=== PATIENT | female | born 1985 | race Caucasian/White ===

== ENCOUNTER 2017-12-12 07:04 | Inpatient (IN) | payer BC ==
[2017-12-12] MEDS: Misoprostol 25 MCG (1/4 of 100 MCG) Tab PO SCH ×3 (07:30→14:46)
[2017-12-12] MEDS ORDERED: Misoprostol 25 MCG (1/4 of 100 MCG) Tab ONE (07:34)
[2017-12-12] MEDS ORDERED: Nalbuphine 20 MG/1 ML Amp IVPUSH PRN (07:38)
[2017-12-12] MEDS ORDERED: Sodium Chloride 0.9% 10 ML Syringe FLUSH PRN (07:38)
[2017-12-12] MEDS ORDERED: Acetaminophen 325 MG Tab PO PRN ×2 (07:38→20:48)
[2017-12-12] MEDS ORDERED: Oxytocin/Lactated Ringers 10 UNIT/1,000 ML BAG IV SCH (07:45)
[2017-12-12] MEDS: Lactated Ringers 1,000 ML IV SCH ×4 (08:26→18:26)
[2017-12-12] MEDS: Clindamycin Phosphate 900 MG in Sodium Chloride 0.9% 100 ML IV SCH ×2 (08:26→16:08)
--- NOTE | 2017-12-12 08:39 | PCM.LDHP ---
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 She presents today to the clinic for induction with an estimated gestational age of 39 weeks and 5 days. GBS was positive in this patient and as a result of her penicillin allergy she was started on clindamycin. She denies any contractions, pain, loss of blood, or loss of fluid Pain Score: 0 Improves with: Reports: None Worsens with: Reports: None - Related Data Allergies/Adverse Reactions: Allergies Allergy/AdvReac Type Severity Reaction Status Date / Time Penicillins Allergy Hives Verified 12/17/15 11:54 Home Medications: Home Meds Vits #93/Iron Fum/FA [ Formula Tablet] 1 tab PO DAILY 12/12/17 [History] Past Medical History - Past Health History Medical/Surgical History: Denies Medical/Surgical History Psychiatric History: Reports: Depression - Infectious Disease History Infectious Disease History: Reports: Chicken Pox Social & Family History - Family History Other Cardiac Family History: Patient reports paternal grandfather had heart disease Respiratory: Reports: None GI: Reports: None : Reports: None Other Family History: Patient reports maternal aunt had kidney problems OBGYN: Reports: None Musculoskeletal: Reports: None Neurological: Reports: None Psychiatric: Reports: None Endocrine/Metabolic: Reports: None Hematologic: Reports: None Immunologic: Reports: None Dermatologic: Reports: None Oncologic: Reports: None - Tobacco Use Smoking Status *Q: Never Smoker Tobacco Use Within Last Twelve Months: No - Alcohol Use Days Per Week of Alcohol Use: 0 - Recreational Drug Use Recreational Drug Use: No Drug Use in Last 12 Months: No H&P Review of Systems - Review of Systems: Review Of Systems: See Below General: Reports: Fatigue, Weight Gain HEENT: Reports: No Symptoms Pulmonary: Reports: No Symptoms Cardiovascular: Reports: No Symptoms Gastrointestinal: Reports: Other (Indigestion made worse by laying down) Genitourinary: Reports: No Symptoms Musculoskeletal: Reports: No Symptoms Skin: Reports: No Symptoms Psychiatric: Reports: No Symptoms Neurological: Reports: No Symptoms L&D Exam - Exam Exam: See Below - Vital Signs Vital Signs: Last Vital Signs Temp 98.9 F 12/12/17 07:38 Pulse 93 12/12/17 08:01 Resp 18 12/12/17 07:38 BP 119/78 12/12/17 08:01 Pulse Ox Weight: 276 lb - OB Specific Fundal Height In cm: 38 Movement: Active Heart Tones: Present - Almaguer Score Almaguer Score Cervix Position: Posterior Almaguer Score Consistency: Soft Almaguer Score Effacement: 31-50% Almaguer Score Dilation: 1-2 cm Almaguer Score Infant's Station: -3 Almaguer Score Total: 4 - Exam General: Alert, Oriented, Cooperative HEENT: Conjunctiva Clear, Mucosa Moist & Currie, Pupils Equal, Pupils Reactive Neck: Supple, Trachea Midline, +2 Carotid Pulse wo Bruit, Full Range of Motion Lungs: Clear to Auscultation, Normal Respiratory Effort Cardiovascular: Regular Rate, Regular Rhythm GI/Abdominal Exam: Normal Bowel Sounds, Soft, Non-Tender, No Organomegaly Genitourinary: Normal external exam Extremities: Normal Inspection, Normal Range of Motion, Pedal Edema Skin: Warm, Dry, Intact Neurological: Reflexes Equal Bilateral DTR: 2+: Bicep (L), Bicep (R), Patella (L), Patella (R) Psychiatric: Alert, Normal Affect, Normal Mood Psychiatric Exam Comments: Patient reports a previous history of depression but currently denies any symptoms - Patient Data Lab Results Last 24 hrs: Laboratory Results - last 24 hr 12/12/17 Range/Units 08:00 WBC 11.96 H (3.98-10.04) K/mm3 RBC 3.92 L (3.98-5.22) M/mm3 Hgb 12.4 (11.2-15.7) gm/L Hct 37.4 (34.1-44.9) % MCV 95.4 H (79.4-94.8) fl MCH 31.6 (25.6-32.2) pg MCHC 33.2 (32.2-35.5) g/dl RDW Std Deviation 42.2 (36.4-46.3) fL Plt Count 187 (182-369) K/mm3 MPV 12.0 (9.4-12.3) fl Neut % (Auto) 75.7 H (34.0-71.1) % Lymph % (Auto) 15.2 L (19.3-51.7) % Frederick % (Auto) 8.1 (4.7-12.5) % Eos % (Auto) 0.5 L (0.7-5.8) Baso % (Auto) 0.2 (0.1-1.2) % Neut # (Auto) 9.06 H (1.56-6.13) K/mm3 Lymph # (Auto) 1.82 (1.18-3.74) K/mm3 Frederick # (Auto) 0.97 H (0.24-0.36) K/mm3 Eos # (Auto) 0.06 (0.04-0.36) K/mm3 Baso # (Auto) 0.02 (0.01-0.08) K/mm3 Result Diagrams: 12/12/17 08:00 - Problem List (1) 39 weeks gestation of SNOMED Code(s): 11168357 ICD Code: Z3A.39 - 39 WEEKS GESTATION OF Status: Acute Current Visit: Yes (2) GBS carrier SNOMED Code(s): 9430511938883 ICD Code: Z22.330 - CARRIER OF GROUP B STREPTOCOCCUS Status: Acute Current Visit: Yes Problem List Initiated/Reviewed/Updated: No Orders Last 24hrs: Active Orders 24 hr Category Date Time Status Communication Order [RC] ASDIRECTED Care 12/12/17 07:38 Active Communication Order [RC] ASDIRECTED Care 12/12/17 07:38 Active Communication Order [RC] ASDIRECTED Care 12/12/17 07:38 Active Monitoring [RC] INTERMITTENT Care 12/12/17 07:38 Active Notify Provider [RC] ASDIRECTED Care 12/12/17 07:38 Active Peripheral IV Care [RC] . DIRECTED Care 12/12/17 07:38 Active Vaginal Exam [RC] ASDIRECTED Care 12/12/17 07:38 Active Vital Signs [RC] ASDIRECTED Care 12/12/17 07:38 Active Regular Diet [DIET] Diet 12/12/17 Breakfast Active TYPE AND SCREEN [BBK] Stat Lab 12/12/17 08:00 Received Acetaminophen [Tylenol] Med 12/12/17 07:38 Active 650 mg PO Q4H PRN Clindamycin Phosphate [Cleocin] 900 mg Med 12/12/17 08:00 Active Sodium Chloride 0.9% [Normal Saline] 100 ml IV Q8H Lactated Ringers [Ringers, Lactated] 1,000 ml Med 12/12/17 07:45 Active IV ASDIRECTED Misoprostol [Cytotec] Med 12/12/17 07:45 Active 25 mcg PO Q3H Nalbuphine [Nubain] Med 12/12/17 07:38 Active 10 mg IVPUSH Q2H PRN Oxytocin/Lactated Ringers [Pitocin in LR 10 Units/1,000 Med 12/12/17 07:45 Active ML] 10 unit in 1,000 ml IV TITRATE Sodium Chloride 0.9% [Saline Flush] Med 12/12/17 07:38 Active 10 ml FLUSH ASDIRECTED PRN Peripheral IV Insertion Adult [OM.PC] Routine Oth 12/12/17 07:38 Ordered Medication Orders Acetaminophen (Tylenol) 650 mg PO Q4H PRN PRN Reason: Fever greater than 100.4 Lactated Ringer's (Ringers, Lactated) 1,000 mls @ 40 mls/hr IV ASDIRECTED SARAH Last Admin: 12/12/17 08:26 Dose: 40 mls/hr Oxytocin/Lactated Ringer's (Pitocin In Lr 10 Units/1,000 Ml) 10 unit in 1,000 mls @ 12 mls/hr IV TITRATE SARAH; 2 MUNITS/MIN PRN Reason: Protocol Clindamycin Phosphate 900 mg/ (Sodium Chloride) 106 mls @ 212 mls/hr IV Q8H SARAH Last Admin: 12/12/17 08:26 Dose: 212 mls/hr Misoprostol (Cytotec) 25 mcg PO Q3H SARAH Stop: 12/12/17 13:46 Last Admin: 12/12/17 07:30 Dose: 25 mcg Nalbuphine HCl (Nubain) 10 mg IVPUSH Q2H PRN PRN Reason: Pain Sodium Chloride (Saline Flush) 10 ml FLUSH ASDIRECTED PRN PRN Reason: Keep Vein Open Assessment/Plan Comment:: Plan induction, labor and delivery <Good Vidal - Last Filed: 12/12/17 10:17> L&D History of Present Illness - General Admit Problem/Dx: Admission Diagnosis/Problem Admission Diagnosis/Problem L&D Exam - Vital Signs Vital Signs: Last Vital Signs Temp 98.9 F 12/12/17 07:38 Pulse 89 12/12/17 09:01 Resp 18 12/12/17 07:38 BP 119/78 12/12/17 08:01 Pulse Ox - Patient Data Lab Results Last 24 hrs: Laboratory Results - last 24 hr 12/12/17 12/12/17 Range/Units 08:00 08:00 WBC 11.96 H (3.98-10.04) K/mm3 RBC 3.92 L (3.98-5.22) M/mm3 Hgb 12.4 (11.2-15.7) gm/L Hct 37.4 (34.1-44.9) % MCV 95.4 H (79.4-94.8) fl MCH 31.6 (25.6-32.2) pg MCHC 33.2 (32.2-35.5) g/dl RDW Std Deviation 42.2 (36.4-46.3) fL Plt Count 187 (182-369) K/mm3 MPV 12.0 (9.4-12.3) fl Neut % (Auto) 75.7 H (34.0-71.1) % Lymph % (Auto) 15.2 L (19.3-51.7) % Frederick % (Auto) 8.1 (4.7-12.5) % Eos % (Auto) 0.5 L (0.7-5.8) Baso % (Auto) 0.2 (0.1-1.2) % Neut # (Auto) 9.06 H (1.56-6.13) K/mm3 Lymph # (Auto) 1.82 (1.18-3.74) K/mm3 Frederick # (Auto) 0.97 H (0.24-0.36) K/mm3 Eos # (Auto) 0.06 (0.04-0.36) K/mm3 Baso # (Auto) 0.02 (0.01-0.08) K/mm3 Blood Type O POSITIVE Gel Antibody Screen Negative Result Diagrams: 12/12/17 08:00 - Problem List (1) 39 weeks gestation of SNOMED Code(s): 30868585 ICD Code: Z3A.39 - 39 WEEKS GESTATION OF Status: Acute Current Visit: Yes (2) GBS carrier SNOMED Code(s): 2413778102067 ICD Code: Z22.330 - CARRIER OF GROUP B STREPTOCOCCUS Status: Acute Current Visit: Yes Problem List Initiated/Reviewed/Updated: No Orders Last 24hrs: Active Orders 24 hr Category Date Time Status Communication Order [RC] ASDIRECTED Care 12/12/17 07:38 Active Communication Order [RC] ASDIRECTED Care 12/12/17 07:38 Active Communication Order [RC] ASDIRECTED Care 12/12/17 07:38 Active Monitoring [RC] INTERMITTENT Care 12/12/17 07:38 Active Notify Provider [RC] ASDIRECTED Care 12/12/17 07:38 Active Peripheral IV Care [RC] . DIRECTED Care 12/12/17 07:38 Active Vaginal Exam [RC] ASDIRECTED Care 12/12/17 07:38 Active Vital Signs [RC] ASDIRECTED Care 12/12/17 07:38 Active Regular Diet [DIET] Diet 12/12/17 Breakfast Active PATIENT RETYPE [BBK] Stat Lab 12/12/17 08:00 Results TYPE AND SCREEN [BBK] Stat Lab 12/12/17 08:00 Results Acetaminophen [Tylenol] Med 12/12/17 07:38 Active 650 mg PO Q4H PRN Clindamycin Phosphate [Cleocin] 900 mg Med 12/12/17 08:00 Active Sodium Chloride 0.9% [Normal Saline] 100 ml IV Q8H Lactated Ringers [Ringers, Lactated] 1,000 ml Med 12/12/17 07:45 Active IV ASDIRECTED Misoprostol [Cytotec] Med 12/12/17 07:45 Active 25 mcg PO Q3H Nalbuphine [Nubain] Med 12/12/17 07:38 Active 10 mg IVPUSH Q2H PRN Oxytocin/Lactated Ringers [Pitocin in LR 10 Units/1,000 Med 12/12/17 07:45 Active ML] 10 unit in 1,000 ml IV TITRATE Sodium Chloride 0.9% [Saline Flush] Med 12/12/17 07:38 Active 10 ml FLUSH ASDIRECTED PRN Peripheral IV Insertion Adult [OM.PC] Routine Oth 12/12/17 07:38 Ordered Medication Orders Acetaminophen (Tylenol) 650 mg PO Q4H PRN PRN Reason: Fever greater than 100.4 Lactated Ringer's (Ringers, Lactated) 1,000 mls @ 40 mls/hr IV ASDIRECTED SARAH Last Admin: 12/12/17 08:26 Dose: 40 mls/hr Oxytocin/Lactated Ringer's (Pitocin In Lr 10 Units/1,000 Ml) 10 unit in 1,000 mls @ 12 mls/hr IV TITRATE SARAH; 2 MUNITS/MIN PRN Reason: Protocol Clindamycin Phosphate 900 mg/ (Sodium Chloride) 106 mls @ 212 mls/hr IV Q8H SARAH Last Admin: 12/12/17 08:26 Dose: 212 mls/hr Misoprostol (Cytotec) 25 mcg PO Q3H SARAH Stop: 12/12/17 13:46 Last Admin: 12/12/17 07:30 Dose: 25 mcg Nalbuphine HCl (Nubain) 10 mg IVPUSH Q2H PRN PRN Reason: Pain Sodium Chloride (Saline Flush) 10 ml FLUSH ASDIRECTED PRN PRN Reason: Keep Vein Open Assessment/Plan Comment:: Patient seen examined and discussed with student.
--- NOTE | 2017-12-12 11:47 | PCM.PREANE ---
Preanesthetic Assessment - Procedure Proposed Procedure: PATI - Anesthesia/Transfusion/Family Hx Anesthesia History: Prior Anesthesia Without Reaction Family History of Anesthesia Reaction: No Transfusion History: No Prior Transfusion(s) - Review of Systems General: No Symptoms Pulmonary: No Symptoms Cardiovascular: No Symptoms Gastrointestinal: Other (GERD occasionally depending on diet ) Neurological: No Symptoms Other: Reports: None - Physical Assessment NPO Status Date: 12/12/17 NPO Status Time: 11:00 Pulse: 89 Respiratory Rate: 18 Blood Pressure: 119/78 Vital Signs: Last Vital Signs Temp 37.2 C 12/12/17 07:38 Pulse 89 12/12/17 09:01 Resp 18 12/12/17 07:38 BP 119/78 12/12/17 08:01 Pulse Ox Height: 1.8 m Weight: 125.191 kg ASA Class: 2 Mental Status: Alert & Oriented x3 Airway Class: Mallampati = 1 Dentition: Reports: Normal Dentition Thyro-Mental Finger Breadths: 3 Mouth Opening Finger Breadths: 3 ROM/Head Extension: Full Lungs: Clear to Auscultation, Normal Respiratory Effort Cardiovascular: Regular Rate, Regular Rhythm - Lab Values: Laboratory Last Values WBC 11.96 K/mm3 (3.98-10.04) H 12/12/17 08:00 RBC 3.92 M/mm3 (3.98-5.22) L 12/12/17 08:00 Hgb 12.4 gm/L (11.2-15.7) 12/12/17 08:00 Hct 37.4 % (34.1-44.9) 12/12/17 08:00 MCV 95.4 fl (79.4-94.8) H 12/12/17 08:00 MCH 31.6 pg (25.6-32.2) 12/12/17 08:00 MCHC 33.2 g/dl (32.2-35.5) 12/12/17 08:00 RDW Std Deviation 42.2 fL (36.4-46.3) 12/12/17 08:00 Plt Count 187 K/mm3 (182-369) 12/12/17 08:00 MPV 12.0 fl (9.4-12.3) 12/12/17 08:00 Neut % (Auto) 75.7 % (34.0-71.1) H 12/12/17 08:00 Lymph % (Auto) 15.2 % (19.3-51.7) L 12/12/17 08:00 Lyman % (Auto) 8.1 % (4.7-12.5) 12/12/17 08:00 Eos % (Auto) 0.5 (0.7-5.8) L 12/12/17 08:00 Baso % (Auto) 0.2 % (0.1-1.2) 12/12/17 08:00 Neut # (Auto) 9.06 K/mm3 (1.56-6.13) H 12/12/17 08:00 Lymph # (Auto) 1.82 K/mm3 (1.18-3.74) 12/12/17 08:00 Lyman # (Auto) 0.97 K/mm3 (0.24-0.36) H 12/12/17 08:00 Eos # (Auto) 0.06 K/mm3 (0.04-0.36) 12/12/17 08:00 Baso # (Auto) 0.02 K/mm3 (0.01-0.08) 12/12/17 08:00 Blood Type O POSITIVE 12/12/17 08:00 Gel Antibody Screen Negative 12/12/17 08:00 - Allergies Allergies/Adverse Reactions: Allergies Allergy/AdvReac Type Severity Reaction Status Date / Time Penicillins Allergy Hives Verified 12/17/15 11:54 - Blood Blood Available: No Product(s) Available: None - Anesthesia Plan Pre-Op Medication Ordered: None - Acknowledgements Anesthesia Type Planned: Epidural Pt an Appropriate Candidate for the Planned Anesthesia: Yes Alternatives and Risks of Anesthesia Discussed w Pt/Guardian: Yes Pt/Guardian Understands and Agrees with Anesthesia Plan: Yes PreAnesthesia Questionnaire - Past Health History Medical/Surgical History: Denies Medical/Surgical History [employer] History: Reports: Psychiatric History: Reports: Depression - Infectious Disease History Infectious Disease History: Reports: Chicken Pox - SUBSTANCE USE Smoking Status *Q: Never Smoker Tobacco Use Within Last Twelve Months: No Second Hand Smoke Exposure: No Days Per Week of Alcohol Use: 0 Recreational Drug Use History: No - HOME MEDS Home Medications: Home Meds Vits #93/Iron Fum/FA [ Formula Tablet] 1 tab PO DAILY 12/12/17 [History] - CURRENT (IN HOUSE) MEDS Current Meds: Current Medications Acetaminophen (Tylenol) 650 mg PO Q4H PRN PRN Reason: Fever greater than 100.4 Lactated Ringer's (Ringers, Lactated) 1,000 mls @ 40 mls/hr IV ASDIRECTED SARAH Last Admin: 12/12/17 08:26 Dose: 40 mls/hr Oxytocin/Lactated Ringer's (Pitocin In Lr 10 Units/1,000 Ml) 10 unit in 1,000 mls @ 12 mls/hr IV TITRATE SARAH; 2 MUNITS/MIN PRN Reason: Protocol Clindamycin Phosphate 900 mg/ (Sodium Chloride) 106 mls @ 212 mls/hr IV Q8H SARAH Last Admin: 12/12/17 08:26 Dose: 212 mls/hr Misoprostol (Cytotec) 25 mcg PO Q3H SARAH Stop: 12/12/17 13:46 Last Admin: 12/12/17 11:30 Dose: 25 mcg Nalbuphine HCl (Nubain) 10 mg IVPUSH Q2H PRN PRN Reason: Pain Sodium Chloride (Saline Flush) 10 ml FLUSH ASDIRECTED PRN PRN Reason: Keep Vein Open Discontinued Medications Misoprostol (Cytotec) Confirm Administered Dose 25 mcg .ROUTE .STK-MED ONE Stop: 12/12/17 07:35 Last Admin: 12/12/17 08:29 Dose: Not Given
--- NOTE | 2017-12-12 12:34 | PCM.SN ---
- Free Text/Narrative Note: Amniotomy 1231 clear fluid. FHR atable cat I before and after amniotomy. Cervix 2, 60, soft, posterior. vertex-1.
[2017-12-12] MEDS ORDERED: ePHEDrine 50 MG/ML SDV IVPUSH PRN (12:58)
[2017-12-12] MEDS ORDERED: fentaNYL 100 MCG/2 ML SDV EPIDUR PRN (12:58)
[2017-12-12] MEDS ORDERED: Ondansetron 4 MG/2 ML SDV IVPUSH PRN (12:58)
[2017-12-12] MEDS ORDERED: Bupivacaine/fentaNYL/NS 100 ML Bag EPIDUR SCH (13:00)
[2017-12-12] MEDS ORDERED: fentaNYL 100 MCG/2 ML SDV ONE (13:06)
[2017-12-12] MEDS: diphenhydrAMINE 50 MG/ML SDV IVPUSH PRN (15:29)
--- NOTE | 2017-12-12 16:30 | PCM.SN ---
- Free Text/Narrative Note: Cervix /soft/posterior to midposition, vertex-1, Pitocin augmentation in progress.
--- NOTE | 2017-12-12 20:37 | PCM.DEL ---
L & D Note - General Info Date of Service: 12/12/17 Mother's Due Date: 12/19/17 - Delivery Note Labor: Augmented by ARM, Augmented by Oxytocin Cervical Ripening Method: Misoprostil (25 g 23 hours apart intravaginal) Delivery Outcome: Livebirth (Female liveborn Monday12/12/17 at 2006 hours STCAEY nuchal cord 2 Apgars 8/9 weight 4050 g/8 pounds 14.9 ounces) Delivery Method: Spontaneous Vaginal Delivery-Single Delivery Mode: Spontaneous Presentation: Right Occiput Anterior (STACEY) Nuchal Cord: Present (2 reduced over the head.) Prep: Povidone-Iodine (Betadine Anesthesia Type: Epidural Episiotomy Type: None Laceration: None Placenta: Intact, Manual Removal (Adherent placenta manual removal required examined all cotyledons present. Intra-uterine exam after delivery of the placenta revealed no additional membranes are remnants of placenta.) Cord: 3 Vessels (Via cord cord blood collected as well as all of the umbilical cord. Made it approximately 200-250 mL of blood in the collection bag) Estimated Blood Loss: 500 Resuscitation Needed: No : Suctioned, Bulb Syringe, Stimulated, Warmed, Erhard Used, Warmer Used Provider: Good Vidal Score 1 min: 8 Score 5 min: 9 - Patient Data Vitals - Most Recent: Last Vital Signs Temp 98.9 F 12/12/17 07:38 Pulse 89 12/12/17 11:58 Resp 18 12/12/17 11:58 BP 119/78 12/12/17 11:58 Pulse Ox Weight - Most Recent: 276 lb I&O - Last 24 Hours: Intake & Output 12/12/17 12/12/17 12/12/17 06:59 14:59 22:59 Intake Total 3200 Balance 3200 Lab Results Last 24 Hours: Laboratory Results - last 24 hr 12/12/17 12/12/17 Range/Units 08:00 08:00 WBC 11.96 H (3.98-10.04) K/mm3 RBC 3.92 L (3.98-5.22) M/mm3 Hgb 12.4 (11.2-15.7) gm/L Hct 37.4 (34.1-44.9) % MCV 95.4 H (79.4-94.8) fl MCH 31.6 (25.6-32.2) pg MCHC 33.2 (32.2-35.5) g/dl RDW Std Deviation 42.2 (36.4-46.3) fL Plt Count 187 (182-369) K/mm3 MPV 12.0 (9.4-12.3) fl Neut % (Auto) 75.7 H (34.0-71.1) % Lymph % (Auto) 15.2 L (19.3-51.7) % [place] % (Auto) 8.1 (4.7-12.5) % Eos % (Auto) 0.5 L (0.7-5.8) Baso % (Auto) 0.2 (0.1-1.2) % Neut # (Auto) 9.06 H (1.56-6.13) K/mm3 Lymph # (Auto) 1.82 (1.18-3.74) K/mm3 [place] # (Auto) 0.97 H (0.24-0.36) K/mm3 Eos # (Auto) 0.06 (0.04-0.36) K/mm3 Baso # (Auto) 0.02 (0.01-0.08) K/mm3 Blood Type O POSITIVE Gel Antibody Screen Negative Med Orders - Current: Current Medications Acetaminophen (Tylenol) 650 mg PO Q4H PRN PRN Reason: Fever greater than 100.4 Diphenhydramine HCl (Benadryl) 25 mg IVPUSH Q6H PRN PRN Reason: Pruritis Last Admin: 12/12/17 15:29 Dose: 25 mg Ephedrine Sulfate (Ephedrine Sulfate) 5 mg IVPUSH ASDIRECTED PRN PRN Reason: Hypotension Fentanyl (Sublimaze) 100 mcg EPIDUR Q3H PRN PRN Reason: Pain Last Admin: 12/12/17 13:33 Dose: 100 mcg Fentanyl/Bupivacaine HCl (Fentanyl/Bupivacaine/Ns 2 Mcg-0.125% 100 Ml) 100 ml EPIDUR ASDIRECTED [facility] Last Admin: 12/12/17 13:33 Dose: 100 ml Lactated Ringer's (Ringers, Lactated) 1,000 mls @ 40 mls/hr IV ASDIRECTED [facility] Last Admin: 12/12/17 18:26 Dose: 500 mls/hr Oxytocin/Lactated Ringer's (Pitocin In Lr 10 Units/1,000 Ml) 10 unit in 1,000 mls @ 12 mls/hr IV TITRATE SARAH; 2 MUNITS/MIN PRN Reason: Protocol Last Titration: 12/12/17 18:24 Dose: 12 munits/min, 72 mls/hr Clindamycin Phosphate 900 mg/ (Sodium Chloride) 106 mls @ 212 mls/hr IV Q8H [facility] Last Admin: 12/12/17 16:08 Dose: 212 mls/hr Nalbuphine HCl (Nubain) 10 mg IVPUSH Q2H PRN PRN Reason: Pain Ondansetron HCl (Zofran) 4 mg IVPUSH ONETIME PRN PRN Reason: Nausea/Vomiting Sodium Chloride (Saline Flush) 10 ml FLUSH ASDIRECTED PRN PRN Reason: Keep Vein Open Discontinued Medications Fentanyl (Sublimaze) Confirm Administered Dose 100 mcg .ROUTE .STK-MED ONE Stop: 12/12/17 13:07 Last Admin: 12/12/17 14:46 Dose: Not Given Misoprostol (Cytotec) Confirm Administered Dose 25 mcg .ROUTE .STK-MED ONE Stop: 12/12/17 07:35 Last Admin: 12/12/17 08:29 Dose: Not Given Misoprostol (Cytotec) 25 mcg PO Q3H [facility] Stop: 12/12/17 13:46 Last Admin: 12/12/17 14:46 Dose: Not Given - Problem List & Annotations (1) 39 weeks gestation of SNOMED Code(s): 04016470 Code(s): Z3A.39 - 39 WEEKS GESTATION OF Status: Acute Current Visit: Yes (2) GBS carrier SNOMED Code(s): 2076679880975 Code(s): Z22.330 - CARRIER OF GROUP B STREPTOCOCCUS Status: Acute Current Visit: Yes (3) Adherent placenta SNOMED Code(s): 18809429 Code(s): O73.0 - RETAINED PLACENTA WITHOUT HEMORRHAGE Status: Acute Current Visit: Yes (4) Nuchal cord without compression, delivered, current hospitalization SNOMED Code(s): 37233371 Code(s): O69.81X0 - LABOR AND DEL COMP BY CORD AROUND NECK, W/O COMPRSN, UNSP Status: Acute Current Visit: Yes - Problem List Review Problem List Initiated/Reviewed/Updated: No - My Orders Last 24 Hours: My Active Orders 12/12/17 07:38 Communication Order [RC] ASDIRECTED Communication Order [RC] ASDIRECTED Communication Order [RC] ASDIRECTED Monitoring [RC] INTERMITTENT Notify Provider [RC] ASDIRECTED Peripheral IV Care [RC] . DIRECTED Vaginal Exam [RC] ASDIRECTED Vital Signs [RC] ASDIRECTED Acetaminophen [Tylenol] 650 mg PO Q4H PRN Nalbuphine [Nubain] 10 mg IVPUSH Q2H PRN Sodium Chloride 0.9% [Saline Flush] 10 ml FLUSH ASDIRECTED PRN Peripheral IV Insertion Adult [OM.PC] Routine 12/12/17 07:45 Lactated Ringers [Ringers, Lactated] 1,000 ml IV ASDIRECTED Oxytocin/Lactated Ringers [Pitocin in LR 10 Units/1,000 ML] 10 unit in 1,000 ml IV TITRATE 12/12/17 08:00 Clindamycin Phosphate [Cleocin] 900 mg Sodium Chloride 0.9% [Normal Saline] 100 ml IV Q8H 12/12/17 Breakfast Regular Diet [DIET] - Plan Plan:: Patient seen examined and discussed with student.
[2017-12-12] MEDS ORDERED: Witch Hazel Medicated Pads 100/Jar TOP PRN (20:48)
[2017-12-12] MEDS ORDERED: Lanolin 100% Cream 7 GM Tube TOP PRN (20:48)
[2017-12-12] MEDS ORDERED: Misoprostol 200 MCG Tab PO PRN (20:48)
[2017-12-12] MEDS ORDERED: Benzocaine/Menthol 20%-0.5% Spray 56 GM Canister TOP PRN (20:48)
[2017-12-12] MEDS ORDERED: Docusate Sodium 100 MG Cap PO PRN (20:48)
[2017-12-12] MEDS ORDERED: Bupivacaine 0.25% 10 ML SDV ONE (22:22)
[2017-12-13 02:49] VITALS: BP 118/60
[2017-12-13] MEDS: diphenhydrAMINE 50 MG/ML SDV IVPUSH PRN (03:52)
[2017-12-13] MEDS: Ibuprofen 600 MG Tab PO PRN ×2 (05:28→09:22)
--- NOTE | 2017-12-13 08:24 | PCM.DCSUM1 ---
Discharge Summary - Hospital Course Free Text/Narrative:: [facility] LIVE L/D Delivery Note Patient Name: HARRIET MAHONEY Date of : 85 Patient Status: Inpatient Attending Provider: Good Vidal Date: 12/12/17 20:31 Initialization Date: 12/12/17 20:31 Addendum entered and electronically signed by Good Vidal MD 12/12/17 20 :53: YASMANY 12/17/2017 not 12/19/2017 EGA 39w2d Original Note: L & D Note - General Info Date of Service: 12/12/17 Mother's Due Date: 12/19/17 - Delivery Note Labor: Augmented by ARM, Augmented by Oxytocin Cervical Ripening Method: Misoprostil (25 g 23 hours apart intravaginal) Delivery Outcome: Livebirth (Female liveborn Monday12/12/17 at 2006 hours STACEY nuchal cord 2 Apgars 8/9 weight 4050 g/8 pounds 14.9 ounces) Delivery Method: Spontaneous Vaginal Delivery-Single Infant Delivery Mode: Spontaneous Presentation: Right Occiput Anterior (STACEY) Nuchal Cord: Present (2 reduced over the head.) Prep: Povidone-Iodine (Betadine Anesthesia Type: Epidural Episiotomy Type: None Laceration: None Placenta: Intact, Manual Removal (Adherent placenta manual removal required examined all cotyledons present. Intra-uterine exam after delivery of the placenta revealed no additional membranes are remnants of placenta.) Cord: 3 Vessels (Via cord cord blood collected as well as all of the umbilical cord. Made it approximately 200-250 mL of blood in the collection bag) Estimated Blood Loss: 500 Resuscitation Needed: No : Suctioned, Bulb Syringe, Stimulated, Warmed, [place] Used, Warmer Used Provider: Good Vidal Score 1 min: 8 Score 5 min: 9 - Patient Data Vitals - Most Recent: Last Vital Signs Temp 98.9 F 12/12/17 07:38 Pulse 89 12/12/17 11:58 Resp 18 12/12/17 11:58 BP 119/78 12/12/17 11:58 Pulse Ox Weight - Most Recent: 276 lb I&O - Last 24 Hours: Intake & Output 12/12/17 12/12/17 12/12/17 06:59 14:59 22:59 Intake Total 3200 Balance 3200 Lab Results Last 24 Hours: Laboratory Results - last 24 hr 12/12/17 12/12/17 Range/Units 08:00 08:00 WBC 11.96 H (3.98-10.04) K/mm3 RBC 3.92 L (3.98-5.22) M/mm3 Hgb 12.4 (11.2-15.7) gm/L Hct 37.4 (34.1-44.9) % MCV 95.4 H (79.4-94.8) fl MCH 31.6 (25.6-32.2) pg MCHC 33.2 (32.2-35.5) g/dl RDW Std Deviation 42.2 (36.4-46.3) fL Plt Count 187 (182-369) K/mm3 MPV 12.0 (9.4-12.3) fl Neut % (Auto) 75.7 H (34.0-71.1) % Lymph % (Auto) 15.2 L (19.3-51.7) % [place] % (Auto) 8.1 (4.7-12.5) % Eos % (Auto) 0.5 L (0.7-5.8) Baso % (Auto) 0.2 (0.1-1.2) % Neut # (Auto) 9.06 H (1.56-6.13) K/mm3 Lymph # (Auto) 1.82 (1.18-3.74) K/mm3 [place] # (Auto) 0.97 H (0.24-0.36) K/mm3 Eos # (Auto) 0.06 (0.04-0.36) K/mm3 Baso # (Auto) 0.02 (0.01-0.08) K/mm3 Blood Type O POSITIVE Gel Antibody Screen Negative Med Orders - Current: Current Medications Acetaminophen (Tylenol) 650 mg PO Q4H PRN PRN Reason: Fever greater than 100.4 Diphenhydramine HCl (Benadryl) 25 mg IVPUSH Q6H PRN PRN Reason: Pruritis Last Admin: 12/12/17 15:29 Dose: 25 mg Ephedrine Sulfate (Ephedrine Sulfate) 5 mg IVPUSH ASDIRECTED PRN PRN Reason: Hypotension Fentanyl (Sublimaze) 100 mcg EPIDUR Q3H PRN PRN Reason: Pain Last Admin: 12/12/17 13:33 Dose: 100 mcg Fentanyl/Bupivacaine HCl (Fentanyl/Bupivacaine/Ns 2 Mcg-0.125% 100 Ml) 100 ml EPIDUR ASDIRECTED [facility] Last Admin: 12/12/17 13:33 Dose: 100 ml Lactated Ringer's (Ringers, Lactated) 1,000 mls @ 40 mls/hr IV ASDIRECTED [facility] Last Admin: 12/12/17 18:26 Dose: 500 mls/hr Oxytocin/Lactated Ringer's (Pitocin In Lr 10 Units/1,000 Ml) 10 unit in 1,000 mls @ 12 mls/hr IV TITRATE SARAH; 2 MUNITS/MIN PRN Reason: Protocol Last Titration: 12/12/17 18:24 Dose: 12 munits/min, 72 mls/hr Clindamycin Phosphate 900 mg/ (Sodium Chloride) 106 mls @ 212 mls/hr IV Q8H [facility] Last Admin: 12/12/17 16:08 Dose: 212 mls/hr Nalbuphine HCl (Nubain) 10 mg IVPUSH Q2H PRN PRN Reason: Pain Ondansetron HCl (Zofran) 4 mg IVPUSH ONETIME PRN PRN Reason: Nausea/Vomiting Sodium Chloride (Saline Flush) 10 ml FLUSH ASDIRECTED PRN PRN Reason: Keep Vein Open Discontinued Medications Fentanyl (Sublimaze) Confirm Administered Dose 100 mcg .ROUTE .STK-MED ONE Stop: 12/12/17 13:07 Last Admin: 12/12/17 14:46 Dose: Not Given Misoprostol (Cytotec) Confirm Administered Dose 25 mcg .ROUTE .STK-MED ONE Stop: 12/12/17 07:35 Last Admin: 12/12/17 08:29 Dose: Not Given Misoprostol (Cytotec) 25 mcg PO Q3H [facility] Stop: 12/12/17 13:46 Last Admin: 12/12/17 14:46 Dose: Not Given - Problem List & Annotations (1) 39 weeks gestation of SNOMED Code(s): 70444791 Code(s): Z3A.39 - 39 WEEKS GESTATION OF Status: Acute Current Visit: Yes (2) GBS carrier SNOMED Code(s): 3015746938574 Code(s): Z22.330 - CARRIER OF GROUP B STREPTOCOCCUS Status: Acute Current Visit: Yes (3) Adherent placenta SNOMED Code(s): 23756748 Code(s): O73.0 - RETAINED PLACENTA WITHOUT HEMORRHAGE Status: Acute Current Visit: Yes (4) Nuchal cord without compression, delivered, current hospitalization SNOMED Code(s): 49622112 Code(s): O69.81X0 - LABOR AND DEL COMP BY CORD AROUND NECK, W/O COMPRSN, UNSP Status: Acute Current Visit: Yes - Problem List Review Problem List Initiated/Reviewed/Updated: No - My Orders Last 24 Hours: My Active Orders 12/12/17 07:38 Communication Order [RC] ASDIRECTED Communication Order [RC] ASDIRECTED Communication Order [RC] ASDIRECTED Monitoring [RC] INTERMITTENT Notify Provider [RC] ASDIRECTED Peripheral IV Care [RC] . DIRECTED Vaginal Exam [RC] ASDIRECTED Vital Signs [RC] ASDIRECTED Acetaminophen [Tylenol] 650 mg PO Q4H PRN Nalbuphine [Nubain] 10 mg IVPUSH Q2H PRN Sodium Chloride 0.9% [Saline Flush] 10 ml FLUSH ASDIRECTED PRN Peripheral IV Insertion Adult [OM.PC] Routine 12/12/17 07:45 Lactated Ringers [Ringers, Lactated] 1,000 ml IV ASDIRECTED Oxytocin/Lactated Ringers [Pitocin in LR 10 Units/1,000 ML] 10 unit in 1,000 ml IV TITRATE 12/12/17 08:00 Clindamycin Phosphate [Cleocin] 900 mg Sodium Chloride 0.9% [Normal Saline] 100 ml IV Q8H 12/12/17 Breakfast Regular Diet [DIET] - Plan Plan:: Patient seen examined and discussed with student. HPI Initial Comments: [facility] LIVE L/D Delivery Note Patient Name: HARRIET MAHONEY Date of : 85 Patient Status: Inpatient Attending Provider: Good Vidal Date: 12/12/17 20:31 Initialization Date: 12/12/17 20:31 Addendum entered and electronically signed by Good Vidal MD 12/12/17 20 :53: YASMANY 12/17/2017 not 12/19/2017 EGAdama 39w2d Original Note: L & D Note - General Info Date of Service: 12/12/17 Mother's Due Date: 12/19/17 - Delivery Note Labor: Augmented by ARM, Augmented by Oxytocin Cervical Ripening Method: Misoprostil (25 g 23 hours apart intravaginal) Delivery Outcome: Livebirth (Female liveborn Monday12/12/17 at 2006 hours STACEY nuchal cord 2 Apgars 8/9 weight 4050 g/8 pounds 14.9 ounces) Infant Delivery Method: Spontaneous Vaginal Delivery-Single Infant Delivery Mode: Spontaneous Presentation: Right Occiput Anterior (STACEY) Nuchal Cord: Present (2 reduced over the head.) Prep: Povidone-Iodine (Betadine Anesthesia Type: Epidural Episiotomy Type: None Laceration: None Placenta: Intact, Manual Removal (Adherent placenta manual removal required examined all cotyledons present. Intra-uterine exam after delivery of the placenta revealed no additional membranes are remnants of placenta.) Cord: 3 Vessels (Via cord cord blood collected as well as all of the umbilical cord. Made it approximately 200-250 mL of blood in the collection bag) Estimated Blood Loss: 500 Resuscitation Needed: No : Suctioned, Bulb Syringe, Stimulated, Warmed, [place] Used, Warmer Used Provider: Good Vidal Score 1 min: 8 Score 5 min: 9 - Patient Data Vitals - Most Recent: Last Vital Signs Temp 98.9 F 12/12/17 07:38 Pulse 89 12/12/17 11:58 Resp 18 12/12/17 11:58 BP 119/78 12/12/17 11:58 Pulse Ox Weight - Most Recent: 276 lb I&O - Last 24 Hours: Intake & Output 12/12/17 12/12/17 12/12/17 06:59 14:59 22:59 Intake Total 3200 Balance 3200 Lab Results Last 24 Hours: Laboratory Results - last 24 hr 12/12/17 12/12/17 Range/Units 08:00 08:00 WBC 11.96 H (3.98-10.04) K/mm3 RBC 3.92 L (3.98-5.22) M/mm3 Hgb 12.4 (11.2-15.7) gm/L Hct 37.4 (34.1-44.9) % MCV 95.4 H (79.4-94.8) fl MCH 31.6 (25.6-32.2) pg MCHC 33.2 (32.2-35.5) g/dl RDW Std Deviation 42.2 (36.4-46.3) fL Plt Count 187 (182-369) K/mm3 MPV 12.0 (9.4-12.3) fl Neut % (Auto) 75.7 H (34.0-71.1) % Lymph % (Auto) 15.2 L (19.3-51.7) % [place] % (Auto) 8.1 (4.7-12.5) % Eos % (Auto) 0.5 L (0.7-5.8) Baso % (Auto) 0.2 (0.1-1.2) % Neut # (Auto) 9.06 H (1.56-6.13) K/mm3 Lymph # (Auto) 1.82 (1.18-3.74) K/mm3 [place] # (Auto) 0.97 H (0.24-0.36) K/mm3 Eos # (Auto) 0.06 (0.04-0.36) K/mm3 Baso # (Auto) 0.02 (0.01-0.08) K/mm3 Blood Type O POSITIVE Gel Antibody Screen Negative Med Orders - Current: Current Medications Acetaminophen (Tylenol) 650 mg PO Q4H PRN PRN Reason: Fever greater than 100.4 Diphenhydramine HCl (Benadryl) 25 mg IVPUSH Q6H PRN PRN Reason: Pruritis Last Admin: 12/12/17 15:29 Dose: 25 mg Ephedrine Sulfate (Ephedrine Sulfate) 5 mg IVPUSH ASDIRECTED PRN PRN Reason: Hypotension Fentanyl (Sublimaze) 100 mcg EPIDUR Q3H PRN PRN Reason: Pain Last Admin: 12/12/17 13:33 Dose: 100 mcg Fentanyl/Bupivacaine HCl (Fentanyl/Bupivacaine/Ns 2 Mcg-0.125% 100 Ml) 100 ml EPIDUR ASDIRECTED SARAH Last Admin: 12/12/17 13:33 Dose: 100 ml Lactated Ringer's (Ringers, Lactated) 1,000 mls @ 40 mls/hr IV ASDIRECTED [facility] Last Admin: 12/12/17 18:26 Dose: 500 mls/hr Oxytocin/Lactated Ringer's (Pitocin In Lr 10 Units/1,000 Ml) 10 unit in 1,000 mls @ 12 mls/hr IV TITRATE SARAH; 2 MUNITS/MIN PRN Reason: Protocol Last Titration: 12/12/17 18:24 Dose: 12 munits/min, 72 mls/hr Clindamycin Phosphate 900 mg/ (Sodium Chloride) 106 mls @ 212 mls/hr IV Q8H [facility] Last Admin: 12/12/17 16:08 Dose: 212 mls/hr Nalbuphine HCl (Nubain) 10 mg IVPUSH Q2H PRN PRN Reason: Pain Ondansetron HCl (Zofran) 4 mg IVPUSH ONETIME PRN PRN Reason: Nausea/Vomiting Sodium Chloride (Saline Flush) 10 ml FLUSH ASDIRECTED PRN PRN Reason: Keep Vein Open Discontinued Medications Fentanyl (Sublimaze) Confirm Administered Dose 100 mcg .ROUTE .STK-MED ONE Stop: 12/12/17 13:07 Last Admin: 12/12/17 14:46 Dose: Not Given Misoprostol (Cytotec) Confirm Administered Dose 25 mcg .ROUTE .STK-MED ONE Stop: 12/12/17 07:35 Last Admin: 12/12/17 08:29 Dose: Not Given Misoprostol (Cytotec) 25 mcg PO Q3H [facility] Stop: 12/12/17 13:46 Last Admin: 12/12/17 14:46 Dose: Not Given - Problem List & Annotations (1) 39 weeks gestation of SNOMED Code(s): 68444173 Code(s): Z3A.39 - 39 WEEKS GESTATION OF Status: Acute Current Visit: Yes (2) GBS carrier SNOMED Code(s): 9168110412676 Code(s): Z22.330 - CARRIER OF GROUP B STREPTOCOCCUS Status: Acute Current Visit: Yes (3) Adherent placenta SNOMED Code(s): 68922013 Code(s): O73.0 - RETAINED PLACENTA WITHOUT HEMORRHAGE Status: Acute Current Visit: Yes (4) Nuchal cord without compression, delivered, current hospitalization SNOMED Code(s): 43565273 Code(s): O69.81X0 - LABOR AND DEL COMP BY CORD AROUND NECK, W/O COMPRSN, UNSP Status: Acute Current Visit: Yes - Problem List Review Problem List Initiated/Reviewed/Updated: No - My Orders Last 24 Hours: My Active Orders 12/12/17 07:38 Communication Order [RC] ASDIRECTED Communication Order [RC] ASDIRECTED Communication Order [RC] ASDIRECTED Monitoring [RC] INTERMITTENT Notify Provider [RC] ASDIRECTED Peripheral IV Care [RC] . DIRECTED Vaginal Exam [RC] ASDIRECTED Vital Signs [RC] ASDIRECTED Acetaminophen [Tylenol] 650 mg PO Q4H PRN Nalbuphine [Nubain] 10 mg IVPUSH Q2H PRN Sodium Chloride 0.9% [Saline Flush] 10 ml FLUSH ASDIRECTED PRN Peripheral IV Insertion Adult [OM.PC] Routine 12/12/17 07:45 Lactated Ringers [Ringers, Lactated] 1,000 ml IV ASDIRECTED Oxytocin/Lactated Ringers [Pitocin in LR 10 Units/1,000 ML] 10 unit in 1,000 ml IV TITRATE 12/12/17 08:00 Clindamycin Phosphate [Cleocin] 900 mg Sodium Chloride 0.9% [Normal Saline] 100 ml IV Q8H 12/12/17 Breakfast Regular Diet [DIET] - Plan Plan:: Patient seen examined and discussed with student. Brief History: [facility] LIVE . L/D [facility]. [facility] [id number]. Date of : Patient Status: Inpatient. Attending Provider: Good Vidalount Number: [id number]. Date: 12/12/17 20:31Initialization Date: 12/12/17 20:31. Addendum entered and electronically signed by Good Vidal MD 12/12/17 20:53: YASMANY 12/17/2017 not 12/19/2017 EGA 39w2d. Original Note: L & D Note. - General Info. Date of Service: 12/12/17. Mother's Due Date: 12/19/17. - Delivery Note. Labor: Augmented by ARM, Augmented by Oxytocin. Cervical Ripening Method: Misoprostil (25 g 23 hours apart intravaginal). Delivery Outcome: Livebirth (Female liveborn Monday12/12/17 at 2006 hours STACEY nuchal cord 2 Apgars 8/9 weight 4050 g/8 pounds 14.9 ounces). Delivery Method : Spontaneous Vaginal Delivery-Single. Delivery Mode: Spontaneous. Presentation: Right Occiput Anterior (STACEY). Nuchal Cord: Present (2 reduced over the head.). Prep: Povidone-Iodine (Betadine. Anesthesia Type: Epidural. Episiotomy Type: None. Laceration: None. Placenta: Intact, Manual Removal (Adherent placenta manual removal required examined all cotyledons present. Intra-uterine exam after delivery of the placenta revealed no additional membranes are remnants of placenta.). Cord: 3 Vessels (Via cord cord blood collected as well as all of the umbilical cord. Made it approximately 200-250 mL of blood in the collection bag). Estimated Blood Loss : 500. Resuscitation Needed: No. Cashiers: Suctioned, Bulb Syringe, Stimulated , Warmed, [place] Used, Warmer Used. Provider: Good Vidal. Score 1 min: 8. Score 5 min: 9. - Patient Data. Vitals - Most Recent: Last Vital Signs. Temp 98.9 F 12/12/17 07:38. Pulse 89 12/12/17 11: 58. Resp 18 12/12/17 11:58. BP 119/78 12/12/17 11:58. Pulse Ox. Weight - Most Recent: 276 lb. I&O - Last 24 Hours: Intake & Output. 12/12/18011801. 06:5914:5922:59. Intake [id number]. [id number]. Lab Results Last 24 Hours: Laboratory Results - last 24 hr. 12/12/1801Range/Units. 08:0008: 00. WBC 11.96 H (3.98-10.04) K/mm3. RBC 3.92 L (3.98-5.22) M/mm3. Hgb 12.4 (11.2-15.7) gm/L. Hct 37.4 (34.1-44.9) %. MCV 95.4 H (79.4-94.8) fl. MCH 31.6 (25.6-32.2) pg. MCHC 33.2 (32.2-35.5) g/dl. RDW Std Deviation 42.2 ( 36.4-46.3) fL. Plt Count 187 (182-369) K/mm3. MPV 12.0 (9.4-12.3) fl. Neut % (Auto) 75.7 H (34.0-71.1) %. Lymph % (Auto) 15.2 L (19.3-51.7) %. [place] % (Auto) 8.1 (4.7-12.5) %. Eos % (Auto) 0.5 L (0.7-5.8). Baso % (Auto) 0.2 (0.1-1.2) %. Neut # (Auto) 9.06 H (1.56-6.13) K/mm3. Lymph # (Auto) 1.82 (1.18-3.74) K/mm3. [place] # (Auto) 0.97 H (0.24-0.36) K/mm3. Eos # (Auto ) 0.06 (0.04-0.36) K/mm3. Baso # (Auto) 0.02 (0.01-0.08) K/mm3. Blood Type O POSITIVE. Gel Antibody Screen Negative. Med Orders - Current: Current Medications. Acetaminophen (Tylenol) 650 mg PO Q4H PRN. PRN Reason: Fever greater than 100.4. Diphenhydramine HCl (Benadryl) 25 mg IVPUSH Q6H PRN. PRN Reason: Pruritis. Last Admin: 12/12/17 15:29 Dose: 25 mg. Ephedrine Sulfate ( Ephedrine Sulfate) 5 mg IVPUSH ASDIRECTED PRN. PRN Reason: Hypotension. Fentanyl (Sublimaze) 100 mcg EPIDUR Q3H PRN. PRN Reason: Pain. Last Admin: 13:33 Dose: 100 mcg. Fentanyl/Bupivacaine HCl (Fentanyl/Bupivacaine/Ns 2 Mcg-0.125% 100 Ml) 100 ml EPIDUR ASDIRECTED SARAH. Last Admin: 12/12/17 13:33 Dose: 100 ml. Lactated Ringer's (Ringers, Lactated) 1,000 mls @ 40 mls/hr IV ASDIRECTED SARAH. Last Admin: 12/12/17 18:26 Dose: 500 mls/hr. Oxytocin/ Lactated Ringer's (Pitocin In Lr 10 Units/1,000 Ml) 10 unit in 1,000 mls @ 12 mls/hr IV TITRATE SARAH; 2 MUNITS/MIN. PRN Reason: Protocol. Last Titration: 18:24 Dose: 12 munits/min, 72 mls/hr. Clindamycin Phosphate 900 mg/ ( Sodium Chloride) 106 mls @ 212 mls/hr IV Q8H SARAH. Last Admin: 12/12/17 16:08 Dose: 212 mls/hr. Nalbuphine HCl (Nubain) 10 mg IVPUSH Q2H PRN. PRN Reason: Pain. Ondansetron HCl (Zofran) 4 mg IVPUSH ONETIME PRN. PRN Reason: Nausea/ Vomiting. Sodium Chloride (Saline Flush) 10 ml FLUSH ASDIRECTED PRN. PRN Reason: Keep Vein Open. Discontinued Medications. Fentanyl (Sublimaze) Confirm Administered Dose 100 mcg .ROUTE .STK-MED ONE. Stop: 12/12/17 13:07. Last Admin: 12/12/17 14:46 Dose: Not Given. Misoprostol (Cytotec) Confirm Administered Dose 25 mcg .ROUTE .STK-MED ONE. Stop: 12/12/17 07:35. Last Admin : 12/12/17 08:29 Dose: Not Given. Misoprostol (Cytotec) 25 mcg PO Q3H SARAH. Stop: 12/12/17 13:46. Last Admin: 12/12/17 14:46 Dose: Not Given. - Problem List & Annotations. (1) 39 weeks gestation of . SNOMED Code(s): 86130016. Code(s): Z3A.39 - 39 WEEKS GESTATION OF Status: Acute Current Visit: Yes. (2) GBS carrier. SNOMED Code(s): 8812509611559. Code(s): Z22.330 - CARRIER OF GROUP B STREPTOCOCCUS Status: Acute Current Visit: Yes. (3) Adherent placenta. SNOMED Code(s): 57373131. Code(s): O73.0 - RETAINED PLACENTA WITHOUT HEMORRHAGE Status: Acute Current Visit: Yes. (4) Nuchal cord without compression, delivered, current hospitalization. SNOMED Code(s): 67415362. Code(s): O69.81X0 - LABOR AND DEL COMP BY CORD AROUND NECK, W/O COMPRSN, UNSP Status: Acute Current Visit: Yes. - Problem List Review. Problem List Initiated/Reviewed/Updated: No. - My Orders. Last 24 Hours: My Active Orders. 12/12/17 07:38. Communication Order [RC] ASDIRECTED. Communication Order [RC] ASDIRECTED. Communication Order [RC] ASDIRECTED. Monitoring [RC] INTERMITTENT. Notify Provider [RC] ASDIRECTED. Peripheral IV Care [RC] . DIRECTED. Vaginal Exam [RC] ASDIRECTED. Vital Signs [RC] ASDIRECTED. Acetaminophen [Tylenol] 650 mg PO Q4H PRN. Nalbuphine [Nubain] 10 mg IVPUSH Q2H PRN. Sodium Chloride 0.9% [Saline Flush ] 10 ml FLUSH ASDIRECTED PRN. Peripheral IV Insertion Adult [OM.PC] Routine. 12/12/17 07:45. Lactated Ringers [Ringers, Lactated] 1,000 ml IV ASDIRECTED. Oxytocin/Lactated Ringers [Pitocin in LR 10 Units/1,000 ML] 10 unit in 1,000 ml IV TITRATE. 12/12/17 08:00. Clindamycin Phosphate [Cleocin] 900 mg Sodium Chloride 0.9% [Normal Saline] 100 ml IV Q8H. 12/12/17 Breakfast. Regular Diet [DIET]. - Plan. Plan:: Patient seen examined and discussed with student. - Discharge Data Discharge Date: 12/13/17 Discharge Disposition: Home, Self-Care 01 Condition: Good - Discharge Diagnosis/Problem(s) (1) 39 weeks gestation of SNOMED Code(s): 26259325 ICD Code: Z3A.39 - 39 WEEKS GESTATION OF Status: Acute Current Visit: Yes (2) GBS carrier SNOMED Code(s): 2286320212115 ICD Code: Z22.330 - CARRIER OF GROUP B STREPTOCOCCUS Status: Acute Current Visit: Yes (3) Adherent placenta SNOMED Code(s): 12947729 ICD Code: O73.0 - RETAINED PLACENTA WITHOUT HEMORRHAGE Status: Acute Current Visit: Yes (4) Nuchal cord without compression, delivered, current hospitalization SNOMED Code(s): 88948553 ICD Code: O69.81X0 - LABOR AND DEL COMP BY CORD AROUND NECK, W/O COMPRSN, UNSP Status: Acute Current Visit: Yes - Patient Summary/Data Complications: None Consults: None Hospital Course: Uneventful - Patient Instructions Diet: Regular Diet as Tolerated Driving: Do Not Drive Showering/Bathing: May Shower (48 hours), No Tub Bathing/Swimming (6 weeks) - Discharge Plan Home Medications: Home Meds Vits #93/Iron Fum/FA [ Formula Tablet] 1 tab PO DAILY 12/12/17 [History] Acetaminophen [Tylenol] 650 mg PO Q4H PRN tablet 12/13/17 [Rx] Benzocaine/Menthol [Dermoplast Pain Relief [place]] 1 applic TOP ASDIRECTED PRN canister 12/13/17 [Rx] Docusate Sodium [Colace] 100 mg PO BID PRN cap 12/13/17 [Rx] Ibuprofen [IJD: Ibuprofen] 600 mg PO Q4H PRN tablet 12/13/17 [Rx] Lanolin [Lansinoh HPA] 1 spray TOP ASDIRECTED PRN tube 12/13/17 [Rx] Referrals: Good Vidal MD [Primary Care Provider] - (12/26/2017) - Discharge Summary/Plan Comment DC Time >30 min.: No - Patient Data Vitals - Most Recent: Last Vital Signs Temp 98.9 F 12/12/17 07:38 Pulse 80 12/12/17 22:00 Resp 18 12/12/17 11:58 BP 118/60 12/12/17 22:00 Pulse Ox 99 12/12/17 15:34 Weight - Most Recent: 276 lb I&O - Last 24 hours: Intake & Output 12/12/17 12/13/17 12/13/17 22:59 06:59 14:59 Intake Total 3200 Balance 3200 Lab Results - Last 24 hrs: Laboratory Results - last 24 hr 12/12/17 12/13/17 Range/Units 08:00 06:10 WBC 12.62 H (3.98-10.04) K/mm3 RBC 3.77 L (3.98-5.22) M/mm3 Hgb 12.1 (11.2-15.7) gm/L Hct 36.5 (34.1-44.9) % MCV 96.8 H (79.4-94.8) fl MCH 32.1 (25.6-32.2) pg MCHC 33.2 (32.2-35.5) g/dl RDW Std Deviation 42.9 (36.4-46.3) fL Plt Count 175 L (182-369) K/mm3 MPV 12.1 (9.4-12.3) fl Neut % (Auto) 74.7 H (34.0-71.1) % Lymph % (Auto) 14.3 L (19.3-51.7) % [place] % (Auto) 9.9 (4.7-12.5) % Eos % (Auto) 0.5 L (0.7-5.8) Baso % (Auto) 0.1 (0.1-1.2) % Neut # (Auto) 9.44 H (1.56-6.13) K/mm3 Lymph # (Auto) 1.80 (1.18-3.74) K/mm3 [place] # (Auto) 1.25 H (0.24-0.36) K/mm3 Eos # (Auto) 0.06 (0.04-0.36) K/mm3 Baso # (Auto) 0.01 (0.01-0.08) K/mm3 Blood Type O POSITIVE Gel Antibody Screen Negative Med Orders - Current: Current Medications Acetaminophen (Tylenol) 650 mg PO Q4H PRN PRN Reason: mild pain or fever Benzocaine/Menthol (Dermoplast Pain Relief [place]) 0 gm TOP ASDIRECTED PRN PRN Reason: Perineal Comfort Measure Docusate Sodium (Colace) 100 mg PO BID PRN PRN Reason: Constipation Emollient Ointment (Lansinoh Hpa) 0 gm TOP ASDIRECTED PRN PRN Reason: Sore Nipples Ibuprofen (Motrin) 600 mg PO Q4H PRN PRN Reason: Mild pain or fever Last Admin: 12/13/17 05:28 Dose: 600 mg Misoprostol (Cytotec) 400 mcg PO ONETIME PRN PRN Reason: excessive vaginal bleeding Prenat Multivit/Vance/Iron/Folic Ac ( Plus Iron) 1 each PO DAILY [facility] Pedro Dhillon (Tucks) 1 pad TOP ASDIRECTED PRN PRN Reason: Hemorrhoid pain Discontinued Medications Acetaminophen (Tylenol) 650 mg PO Q4H PRN PRN Reason: Fever greater than 100.4 Diphenhydramine HCl (Benadryl) 25 mg IVPUSH Q6H PRN PRN Reason: Pruritis Last Admin: 12/13/17 03:52 Dose: 25 mg Ephedrine Sulfate (Ephedrine Sulfate) 5 mg IVPUSH ASDIRECTED PRN PRN Reason: Hypotension Fentanyl (Sublimaze) 100 mcg EPIDUR Q3H PRN PRN Reason: Pain Last Admin: 12/12/17 13:33 Dose: 100 mcg Fentanyl (Sublimaze) Confirm Administered Dose 100 mcg .ROUTE .STK-MED ONE Stop: 12/12/17 13:07 Last Admin: 12/12/17 14:46 Dose: Not Given Fentanyl/Bupivacaine HCl (Fentanyl/Bupivacaine/Ns 2 Mcg-0.125% 100 Ml) 100 ml EPIDUR ASDIRECTED [facility] Last Admin: 12/12/17 13:33 Dose: 100 ml Lactated Ringer's (Ringers, Lactated) 1,000 mls @ 40 mls/hr IV ASDIRECTED [facility] Last Infusion: 12/12/17 20:10 Dose: 0 mls/hr Oxytocin/Lactated Ringer's (Pitocin In Lr 10 Units/1,000 Ml) 10 unit in 1,000 mls @ 12 mls/hr IV TITRATE SARAH; 2 MUNITS/MIN PRN Reason: Protocol Last Titration: 12/12/17 20:09 Dose: 500 mls/hr Clindamycin Phosphate 900 mg/ (Sodium Chloride) 106 mls @ 212 mls/hr IV Q8H [facility] Last Admin: 12/12/17 16:08 Dose: 212 mls/hr Misoprostol (Cytotec) Confirm Administered Dose 25 mcg .ROUTE .STK-MED ONE Stop: 12/12/17 07:35 Last Admin: 12/12/17 08:29 Dose: Not Given Misoprostol (Cytotec) 25 mcg PO Q3H [facility] Stop: 12/12/17 13:46 Last Admin: 12/12/17 14:46 Dose: Not Given Nalbuphine HCl (Nubain) 10 mg IVPUSH Q2H PRN PRN Reason: Pain Ondansetron HCl (Zofran) 4 mg IVPUSH ONETIME PRN PRN Reason: Nausea/Vomiting Sodium Chloride (Saline Flush) 10 ml FLUSH ASDIRECTED PRN PRN Reason: Keep Vein Open *Q Meaningful Use (DIS) - VTE *Q VTE Criteria *Q: - Stroke *Q Stroke Criteria *Q: - AMI *Q AMI Criteria *Q:
[2017-12-13] MEDS ORDERED: Prenatal Multivitamin with Calcium/Folic Acid/Iron Tab PO SCH (09:00)
== END 2017-12-13 10:20 | disposition home or self-care (01) | DRG 541 ==
LOC: JD.OB 07:04 → OBSVTOIN 20:06
PROVIDERS: ADMIT Obstetrics & Gynecology; ATTEND Obstetrics & Gynecology
PROC: 10E0XZZ Delivery of Products of Conception, External Approach (ICD-10-PCS; principal; 2017-12-12)
PROC: 10907ZC Drainage of Amniotic Fluid, Therapeutic from Products of Conception, Via Natural or Artificial Opening (ICD-10-PCS; 2017-12-12)
PROC: 3E0P7VZ Introduction of Hormone into Female Reproductive, Via Natural or Artificial Opening (ICD-10-PCS; 2017-12-12)
PROC: 10D17Z9 Manual Extraction of Products of Conception, Retained, Via Natural or Artificial Opening (ICD-10-PCS; 2017-12-12)
PROC: 00HU33Z Insertion of Infusion Device into Spinal Canal, Percutaneous Approach (ICD-10-PCS; 2017-12-12)
PROC: 3E0R3BZ Introduction of Anesthetic Agent into Spinal Canal, Percutaneous Approach (ICD-10-PCS; 2017-12-12)
DX: O99.824 Streptococcus B carrier state complicating childbirth (principal); O69.81X0 Labor and delivery complicated by cord around neck, without compression, not applicable or unspecified; O73.0 Retained placenta without hemorrhage; Z3A.40 40 weeks gestation of pregnancy; Z37.0 Single live birth; Z88.0 Allergy status to penicillin
CPT/HCPCS: 36415; 51702; 59409; 85025; 86850; 86900; 86901; A9270-GY; J1200; J2590; J3010; J7030; J7120

== ENCOUNTER 2019-08-06 14:11 | Emergency (ER) | payer SELFPAY ==
[2019-08-06] MEDS ORDERED: Sodium Chloride 0.9% 10 ML Syringe FLUSH PRN (14:27)
--- NOTE | 2019-08-06 15:30 | EDM.PDOC ---
<Misty Vega - Last Filed: 08/06/19 15:15> ED HPI GENERAL MEDICAL PROBLEM - General Chief Complaint: General Stated Complaint: LOW HEMOGLOBIN Time Seen by Provider: 08/06/19 14:26 Source of Information: Reports: Patient History Limitations: Reports: No Limitations - History of Present Illness INITIAL COMMENTS - FREE TEXT/NARRATIVE: Es is a pleasant 34 year old female presenting today with a low hemoglobin and hematocrit. She had a vaginal delivery in 08/01 to twins, after delivery was told she was anemic and needed a blood transfusion. Patient refused the transfusion as she wanted to give her body a chance to recover on its own. She was seen in the clinic yesterday where she had her labs drawn. At that time her Hgb was 7.2 and she was told to take some iron for a few weeks. At present, she is becoming short of breath walking from her car to her house. She is also having some numbness in her hands and mouth along with a headache. Onset: Gradual Onset Date: 08/01/19 Duration: Day(s):, Getting Worse Location: Reports: Generalized Improves with: Reports: None Worsens with: Reports: None Associated Symptoms: Reports: Headaches, Shortness of Breath, Weakness Treatments SCRAP WORKER: Reports: Other (see below) (oral iron ) - Related Data Allergies Allergy/AdvReac Type Severity Reaction Status Date / Time Penicillins Allergy Hives Verified 08/06/19 14:22 Home Meds: Home Meds Aspirin [Jake Chewable] 81 mg PO DAILY 07/28/19 [History] Folic Acid 1 mg PO DAILY 07/28/19 [History] Pnv No.122/Iron/Folic Acid [ Multi Tablet] 1 each PO DAILY 07/28/19 [ History] Ferrous Sulfate [Iron] 325 mg PO DAILY 08/06/19 [History] Past Medical History - Past Health History Medical/Surgical History: Denies Medical/Surgical History HEENT History: Reports: Impaired Vision Cardiovascular History: Reports: Hypertension Respiratory History: Reports: None Gastrointestinal History: Reports: None Genitourinary History: Reports: Renal Calculus, UTI, Recurrent 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: Musculoskeletal History: Reports: None Neurological History: Reports: None Psychiatric History: Reports: Depression Endocrine/Metabolic History: Reports: Obesity/BMI 30+ Hematologic History: Reports: Anemia Immunologic History: Reports: None Oncologic (Cancer) History: Reports: None Dermatologic History: Reports: None - Infectious Disease History Infectious Disease History: Reports: Chicken Pox - Past Surgical History HEENT Surgical History: Reports: Oral Surgery Social & Family History - Family History Family Medical History: Noncontributory Other Cardiac Family History: Patient reports paternal grandfather had heart disease Respiratory: Reports: None GI: Reports: None : Reports: None Other Family History: Patient reports maternal aunt had kidney problems OBGYN: Reports: None Musculoskeletal: Reports: None Neurological: Reports: None Psychiatric: Reports: None Endocrine/Metabolic: Reports: None Hematologic: Reports: None Immunologic: Reports: None Dermatologic: Reports: None Oncologic: Reports: None - Tobacco Use Smoking Status *Q: Never Smoker - Caffeine Use Caffeine Use: Reports: Soda, Tea - Recreational Drug Use Recreational Drug Use: No ED ROS GENERAL - Review of Systems Review Of Systems: See Below Constitutional: Reports: Fatigue HEENT: Reports: No Symptoms Respiratory: Reports: Shortness of Breath Cardiovascular: Reports: Dyspnea on Exertion Endocrine: Reports: No Symptoms GI/Abdominal: Reports: No Symptoms : Reports: No Symptoms Musculoskeletal: Reports: No Symptoms Skin: Reports: No Symptoms Neurological: Reports: Numbness (in mouth and hands ) Psychiatric: Reports: No Symptoms Hematologic/Lymphatic: Reports: No Symptoms Immunologic: Reports: No Symptoms ED EXAM, GENERAL - Physical Exam Exam: See Below Exam Limited By: No Limitations General Appearance: Alert, WD/WN, No Apparent Distress Eye Exam: Bilateral Eye: Other (pale conjunctiva ) Throat/Mouth: Normal Lips, Normal Teeth, Normal Oropharynx, Normal Voice, No Airway Compromise, Other (pale oral mucosa ). No: Normal Gums Head: Atraumatic, Normocephalic Respiratory/Chest: No Respiratory Distress, Lungs Clear, Normal Breath Sounds, No Accessory Muscle Use, Chest Non-Tender Cardiovascular: Normal Peripheral Pulses, Regular Rate, Rhythm, No Edema, No Gallop, No JVD, No Murmur, No Rub GI/Abdominal: Normal Bowel Sounds, Soft, Non-Tender, No Organomegaly, No Distention, No Abnormal Bruit, No Mass Extremities: Normal Range of Motion, Non-Tender, No Pedal Edema, Normal Capillary Refill, Pallor Neurological: Alert, Oriented, CN II-XII Intact, Normal Cognition, Normal Gait, Normal Reflexes, No Motor/Sensory Deficits Psychiatric: Normal Affect, Normal Mood Skin Exam: Warm, Dry, Intact, No Rash, Pallor Course - Vital Signs Last Recorded V/S: Last Vital Signs Temp 99.7 F 08/06/19 20:54 Pulse 78 08/06/19 19:00 Resp 19 08/06/19 20:54 BP 155/92 H 08/06/19 20:54 Pulse Ox 97 08/06/19 20:54 - Orders/Labs/Meds Orders: Active Orders 24 hr Category Date Time Status Peripheral IV Care [RC] . DIRECTED Care 08/06/19 14:27 Active Sodium Chloride 0.9% [Normal Saline] 250 ml Med 08/06/19 16:15 Active IV ASDIRECTED Sodium Chloride 0.9% [Saline Flush] Med 08/06/19 14:27 Active 10 ml FLUSH ASDIRECTED PRN Peripheral IV Insertion Adult [OM.PC] Stat Oth 08/06/19 14:27 Ordered Transfuse PRBC [Transfuse Red Blood Cells] [COMM] Oth 08/06/19 15:20 Ordered Urgent Medication Orders Sodium Chloride (Normal Saline) 250 mls @ 50 mls/hr IV ASDIRECTED SARAH Last Admin: 08/06/19 16:15 Dose: 50 mls/hr Sodium Chloride (Saline Flush) 10 ml FLUSH ASDIRECTED PRN PRN Reason: Keep Vein Open Last Admin: 08/06/19 14:45 Dose: 10 ml Labs: Laboratory Tests 08/06/19 08/06/19 Range/Units 14:45 14:45 Hgb 6.8 L* (11.2-15.7) gm/dl Hct 22.9 L (34.1-44.9) % Blood Type O POSITIVE Gel Antibody Screen Negative Crossmatch See Detail Meds: Medications Generic Name Dose Route Start Last Admin Trade Name Freq PRN Reason Stop Dose Admin Sodium Chloride 250 mls @ 50 mls/hr 08/06/19 16:15 08/06/19 16:15 Normal Saline IV 50 mls/hr ASDIRECTED SARAH Administration Sodium Chloride 10 ml 08/06/19 14:27 08/06/19 14:45 Saline Flush FLUSH 10 ml ASDIRECTED PRN Administration Keep Vein Open Departure - Departure Disposition: Home, Self-Care 01 Clinical Impression: Anemia Qualifiers: Iron deficiency anemia type: chronic blood loss - Discharge Information Instructions: Blood Transfusion, Adult, Care After, [id number] Referrals: Good Vidal MD [Primary Care Provider] - Forms: ED Department Discharge Additional Instructions: You were evaluated in the ED today regarding your low hemoglobin. You were given 2 units of blood in the ER today for management of this. Recommend that you follow up with Dr. Vidal in a day or 2, to have your levels redrawn to see if these are improving. Make sure that you are eating some hearty meals, with red meat, and green leafy vegetables over the next few days. Please return to the ED if your symptoms should change or worsen. - My Orders Last 24 Hours: My Active Orders 08/06/19 14:27 Peripheral IV Care [RC] . DIRECTED Sodium Chloride 0.9% [Saline Flush] 10 ml FLUSH ASDIRECTED PRN Peripheral IV Insertion Adult [OM.PC] Stat 08/06/19 15:20 Transfuse PRBC [Transfuse Red Blood Cells] [COMM] Urgent 08/06/19 16:15 Sodium Chloride 0.9% [Normal Saline] 250 ml IV ASDIRECTED - Assessment/Plan Last 24 Hours: My Active Orders 08/06/19 14:27 Peripheral IV Care [RC] . DIRECTED Sodium Chloride 0.9% [Saline Flush] 10 ml FLUSH ASDIRECTED PRN Peripheral IV Insertion Adult [OM.PC] Stat 08/06/19 15:20 Transfuse PRBC [Transfuse Red Blood Cells] [COMM] Urgent 08/06/19 16:15 Sodium Chloride 0.9% [Normal Saline] 250 ml IV ASDIRECTED <Maricruz Paniagua - Last Filed: 08/06/19 20:55> ED HPI GENERAL MEDICAL PROBLEM - History of Present Illness INITIAL COMMENTS - FREE TEXT/NARRATIVE: I have read and reviewed the student's HPI and examined the patient and agree with BEATRICE Singleton-student. Course - Re-Assessments/Exams Free Text/Narrative Re-Assessment/Exam: 08/06/19 15:51 Patient presents to the ED for evaluation of low hemoglobin. Hemoglobin was at 7.2 yesterday in the clinic, they redraw of her hemoglobin and hematocrit reveals a level of 6.8, and 22 respectively. Patient has consented to receiving blood transfusion at this time, will go ahead and transfuse 2 units of blood when she is typed and screened appropriately. 08/06/19 18:16 Patient's blood has been started, and she has no other concerns or complaints at this time. Patient will be advised to follow-up with Dr. Vidal in the next day or 2 to make sure that everything is improving. She is understanding of this. Departure - Departure Time of Disposition: 20:55 Condition: Fair - Discharge Information *PRESCRIPTION DRUG MONITORING PROGRAM REVIEWED*: No *COPY OF PRESCRIPTION DRUG MONITORING REPORT IN PATIENT ELIN: No
[2019-08-06] MEDS ORDERED: Sodium Chloride 0.9% 250 ML IV SCH (16:15)
[2019-08-06 19:01] VITALS: PULSE 78
[2019-08-06 20:55] VITALS: BP 155/92
== END 2019-08-06 20:58 | disposition home or self-care (01) ==
LOC: JD.ED 14:11
DX: D50.0 Iron deficiency anemia secondary to blood loss (chronic) (principal); I10 Essential (primary) hypertension; E66.9 Obesity, unspecified; Z68.41 Body mass index [BMI] 40.0-44.9, adult; Z88.0 Allergy status to penicillin; Z79.82 Long term (current) use of aspirin
CPT/HCPCS: 36415; 36430; 85014; 85018; 86850; 86900; 86901; 86922; 96360; 96361; 99284; J7050; P9016

== ENCOUNTER 2022-01-12 12:14 | Emergency (ER) | payer BC ==
[2022-01-12 12:55] VITALS: BP 132/78; PULSE 83
== END 2022-01-12 16:00 | disposition home or self-care (01) ==
LOC: JD.ED 12:14
DX: M25.561 Pain in right knee (principal); E66.9 Obesity, unspecified; Z88.0 Allergy status to penicillin; Z68.32 Body mass index [BMI] 32.0-32.9, adult; Z86.16 Personal history of COVID-19
CPT/HCPCS: 36415; 85610; 85730; 93971-26-RT; 93971-RT; 99284; 99284-25